=== PATIENT | male | born 1960 | race Caucasian/White ===

== ENCOUNTER 2017-10-25 10:39 | Emergency (ER) | payer OTHER ==
[2017-10-25] MEDS ORDERED: BABY ASPIRIN 81 MG CHEW PO ONE (10:47)
[2017-10-25] MEDS ORDERED: Nitrostat 0.4 MG (ED) SL ONE ×2 (10:47→11:02)
[2017-10-25] MEDS ORDERED: Sodium Chloride 0.9% 1000 ML 1,000 ML IV SCH (11:00)
[2017-10-25] MEDS ORDERED: BABY ASPIRIN 81 MG CHEW ONE (11:02)
[2017-10-25] MEDS ORDERED: Sodium Chloride 0.9% 1000 ML 1,000 ML ONE (11:03)
--- NOTE | 2017-10-25 11:05 | ERPHSYRPT ---
- History of Present Illness Time Seen by Provider: 10/25/17 10:50 Historian: patient Physician History: PATIENT HISTORY OF HYPERTENSION, CORONARY ARTERY DISEASE 2014 WITH 2 STENT INSERTIONS, PATIENT STATES CHEST PAIN WHICH HE DESCRIBES PAIN PRESSURE DISCOMFORT RADIATES TO LEFT SHOULDER BLADE AND DOWN HIS LEFT ARM. HE RATES HIS PAIN SCALE 3/10, DENIES ASSOCIATE DIAPHORESIS AND PALPITATIONS. Timing/Duration: today Activities at Onset: none Quality: pressure, sharpness Location: substernal Chest Pain Radiation: arm, back Severity of Pain-Max: moderate Severity of Pain-Current: moderate Modifying Factors: Improves With: nitroglycerin Associated Symptoms: shortness of breath Prior Chest Pain/Cardiac Workup: cardiac cath, heart attack Nitro Today/Relief: 0.4 mg x 1, provided at home Aspirin Treatment Today: 81 mg x 4, provided by ED Allergies/Adverse Reactions: No Known Drug Allergies Allergy (Verified 10/25/17 10:48) Home Medications: Carvedilol 6.25 mg [Coreg 6.25 MG] 6.25 mg PO BID 10/05/14 [History] Clopidogrel Bisulfate 75 mg [PLAVIX 75 MG Tablet] 75 mg PO DAILY 10/05/14 [History] Lisinopril 20 mg [Zestril 20 MG] 20 mg PO DAILY 10/05/14 [History] Simvastatin 20 mg PO HS 10/05/14 [History] Hx Tetanus, Diphtheria Vaccination/Date Given: (UNSURE) Hx Influenza Vaccination/Date Given: No Hx Pneumococcal Vaccination/Date Given: No - Review of Systems Constitutional: No Fever, No Chills Eyes: No Symptoms Ears, Nose, & Throat: No Symptoms Respiratory: Dyspnea, No Cough Cardiac: Chest Pain, No Edema, No Syncope Abdominal/Gastrointestinal: No Symptoms, No Abdominal Pain, No Nausea, No Vomiting, No Diarrhea Genitourinary Symptoms: No Symptoms, No Dysuria Musculoskeletal: No Symptoms, Joint Redness, No Back Pain, No Neck Pain Skin: No Rash Neurological: No Dizziness, No Focal Weakness, No Sensory Changes Psychological: No Symptoms Endocrine: No Symptoms All Other Systems: Reviewed and Negative - Past Medical History Pertinent Past Medical History: Yes Neurological History: No Pertinent History ENT History: No Pertinent History Cardiac History: Congestive Heart Failure, Coronary Artery Disease, Hypertension , Myocardial Infarction ([place]) Respiratory History: Bronchitis, CHF, COPD, Sleep Apnea Endocrine Medical History: No Pertinent History Musculoskeletal History: Arthritis GI Medical History: No Pertinent History, Hernia History: No Pertinent History Psycho-Social History: No Pertinent History Male Reproductive Disorders: No Pertinent History - Past Surgical History Past Surgical History: Yes Neuro Surgical History: No Pertinent History Cardiac: Cardiac Stent Respiratory: No Pertinent History Gastrointestinal: Hernia Repair Genitourinary: No Pertinent History Musculoskeletal: Orthopedic Surgery Male Surgical History: No Pertinent History - Social History Smoking Status: Former smoker Exposure to second hand smoke: No Drug Use: none Patient Lives Alone: No - Nursing Vital Signs Nursing Vital Signs: Initial Vital Signs Temperature 97.9 F 10/25/17 10:40 Pulse Rate 68 10/25/17 10:40 Respiratory Rate 16 10/25/17 10:40 Blood Pressure 119/80 10/25/17 10:40 Pain Scale Pain Intensity 0 - Physical Exam General Appearance: mild distress Eye Exam: PERRL/EOMI, eyes nml inspection Ears, Nose, Throat Exam: normal ENT inspection, moist mucous membranes Neck Exam: normal inspection, non-tender, supple, full range of motion Respiratory Exam: normal breath sounds, lungs clear, other (NO WHEEZES OR RHONCHI NOTED), No respiratory distress Cardiovascular Exam: regular rate/rhythm, normal heart sounds Gastrointestinal/Abdomen Exam: soft, normal bowel sounds (NONTENDER), No tenderness, No mass Back Exam: normal inspection, No CVA tenderness, No vertebral tenderness Extremity Exam: normal inspection, normal range of motion, other (THERE IS TRACE PRETIBIAL EDEMA) Neurologic Exam: alert, oriented x 3, cooperative, normal mood/affect, sensation nml, No motor deficits Skin Exam: normal color, warm, dry - Course EKG Interpreted by Me: RATE, Sinus Rhythm, NORMAL AXIS (RATE OF [address] SEGMENT DEPRESSION) Ordered Tests: Active Orders 24 hr Category Date Time Status Presto Log Operator STAT Care 10/25/17 10:49 Active EKG-ER Only STAT Care 10/25/17 10:47 Active Oxygen-ED Only NASAL CANNULA 2 lpm Care 10/25/17 10:47 Active CHEST 1 VIEW (PORTABLE) Stat Exams 10/25/17 10:48 Taken CBC W DIFF Stat Lab 10/25/17 10:55 Completed CMP Stat Lab 10/25/17 10:55 Completed D-DIMER QUANTITATION Stat Lab 10/25/17 10:55 Completed NT PRO BNP Stat Lab 10/25/17 10:55 Completed PROTIME WITH INR Stat Lab 10/25/17 10:55 Completed TROPONIN Q3H Lab 10/25/17 10:55 Completed Medication Summary Discontinued Medications Generic Name Dose Route Start Last Admin Trade Name Memo PRN Reason Stop Dose Admin Aspirin 324 mg 10/25/17 10:47 10/25/17 11:20 Baby Aspirin 81 Mg Chew PO 10/25/17 10:48 324 mg STAT ONE Administration Aspirin Confirm 10/25/17 11:02 Baby Aspirin 81 Mg Chew Administered 10/25/17 11:03 Dose 324 mg .ROUTE .STK-MED ONE Sodium Chloride 1,000 mls @ 100 mls/hr 10/25/17 11:00 10/25/17 11:29 Sodium Chloride 0.9% 1000 Ml IV 11/24/17 10:59 100 mls/hr .Q10H DEVIN Administration Sodium Chloride Confirm 10/25/17 11:03 Sodium Chloride 0.9% 1000 Ml Administered 10/25/17 11:04 Dose 1,000 mls @ ud .ROUTE .STK-MED ONE Nitroglycerin 0.4 mg 10/25/17 10:47 10/25/17 11:20 Nitrostat 0.4 Mg (Ed) SL 10/25/17 10:48 0.4 mg STAT ONE Administration Nitroglycerin Confirm 10/25/17 11:02 Nitrostat 0.4 Mg (Ed) Administered 10/25/17 11:03 Dose 0.4 mg SL .STK-MED ONE Lab/Rad Data: Laboratory Result Diagrams 10/25/17 10:55 10/25/17 10:55 Laboratory Results 10/25/17 10/25/17 10/25/17 Range/Units 10:55 10:55 10:55 WBC 7.7 (4.0-10.5) K/mm3 RBC 4.49 (4.1-5.6) M/mm3 Hgb 14.2 (12.5-18.0) gm/dl Hct 39.5 L (42-50) % MCV 88.0 (78-100) fl MCH 31.6 (26-32) pg MCHC 35.9 (32-36) g/dl RDW 13.4 (11.5-14.0) % Plt Count 257 (150-450) K/mm3 MPV 9.3 (6-9.5) fl Gran % 67.1 H (36.0-66.0) % Eos # (Auto) 0.22 (0-0.5) Absolute Lymphs (auto) 1.70 (1.0-4.6) Absolute Monos (auto) 0.59 (0.0-1.3) Lymphocytes % 22.0 L (24.0-44.0) % Monocytes % 7.6 (0.0-12.0) % Eosinophils % 2.8 (0.00-5.0) % Basophils % 0.5 (0.0-0.4) % Absolute Granulocytes 5.18 (1.4-6.9) Basophils # 0.04 (0-0.4) PT 12.6 (8.83-12.87) SECONDS INR 1.08 (0.8-3.0) D-Dimer < 215 L (215-500) ng/mL Sodium (137-145) mmol/L Potassium (3.5-5.1) mmol/L Chloride (98-107) mmol/L Carbon Dioxide (22-30) mmol/L Anion Gap (5-15) MEQ/L BUN (9-20) mg/dL Creatinine (0.66-1.25) mg/dL Estimated GFR ML/MIN Glucose (74-106) mg/dL Calcium (8.4-10.2) mg/dL Total Bilirubin (0.2-1.3) mg/dL AST (17-59) U/L ALT (0-50) U/L Alkaline Phosphatase (38-126) U/L Troponin I < 0.012 (0.000-0.034) ng/mL NT-Pro-B Natriuret Pep (0-900) pg/mL Serum Total Protein (6.3-8.2) g/dL Albumin (3.5-5.0) g/dL 10/25/17 Range/Units 10:55 WBC (4.0-10.5) K/mm3 RBC (4.1-5.6) M/mm3 Hgb (12.5-18.0) gm/dl Hct (42-50) % MCV (78-100) fl MCH (26-32) pg MCHC (32-36) g/dl RDW (11.5-14.0) % Plt Count (150-450) K/mm3 MPV (6-9.5) fl Gran % (36.0-66.0) % Eos # (Auto) (0-0.5) Absolute Lymphs (auto) (1.0-4.6) Absolute Monos (auto) (0.0-1.3) Lymphocytes % (24.0-44.0) % Monocytes % (0.0-12.0) % Eosinophils % (0.00-5.0) % Basophils % (0.0-0.4) % Absolute Granulocytes (1.4-6.9) Basophils # (0-0.4) PT (8.83-12.87) SECONDS INR (0.8-3.0) D-Dimer (215-500) ng/mL Sodium 141 (137-145) mmol/L Potassium 4.0 (3.5-5.1) mmol/L Chloride 108 H (98-107) mmol/L Carbon Dioxide 24 (22-30) mmol/L Anion Gap 13.1 (5-15) MEQ/L BUN 13 (9-20) mg/dL Creatinine 0.75 (0.66-1.25) mg/dL Estimated GFR > 60.0 ML/MIN Glucose 105 (74-106) mg/dL Calcium 8.7 (8.4-10.2) mg/dL Total Bilirubin 0.60 (0.2-1.3) mg/dL AST 12 L (17-59) U/L ALT 15 (0-50) U/L Alkaline Phosphatase 50 (38-126) U/L Troponin I (0.000-0.034) ng/mL NT-Pro-B Natriuret Pep 40.0 (0-900) pg/mL Serum Total Protein 6.5 (6.3-8.2) g/dL Albumin 4.2 (3.5-5.0) g/dL - Progress Progress: improved Progress Note: 10/25/17 11:07 PATIENT ADMINISTERED NORMAL SALINE AT 100 Ml/HOUR, BABY ASPIRIN 4 ORALLY AND SUBLINGUAL NITRO 0.4 MG EVERY 5 MINUTES 3 DOSES. pATIENT USES [facility] [employer] FAR MORPHINE AND FENTANYL. PATIENT IS PAIN FREE AFTER NITRO 0.4MG SL X 3 NITROPASTE 1/2" APPLIED TO CHEST WALL 10/25/17 12:[address].: Other (DISCUSSED WITH DR MCNEAL AT 1220 ACCEPTS TRANSFER VIA [facility]) - Departure Time of Disposition: 13:05 Departure Disposition: Transfer Clinical Impression: ACUTE CHEST PAIN Condition: Stable Critical Care Time: No Referrals: AGUEDA STILL MD [Primary Care Provider] -
[2017-10-25 11:14] LABS: BASOPHIL % 0.5 % (0.0-0.4); Basophil (Absolute #) 0.04 (0-0.4); Eosinophil % 2.8 % (0.00-5.0); Eosinophil (Absolute #) 0.22 (0-0.5); Granulocyte Absolute (ANC) 5.18 (1.4-6.9); Granulocytes % 67.1 % (36.0-66.0); Hematocrit 39.5 % (42-50); Hemoglobin 14.2 gm/dl (12.5-18.0); Mean Corpuscular Hemoglobin 31.6 pg (26-32); Mean Corpuscular Hgb Concent. 35.9 g/dl (32-36); Mean Platelet Volume 9.3 fl (6-9.5); Monocyte (Absolute #) 0.59 (0.0-1.3); Monocytes % 7.6 % (0.0-12.0); Platelet Count 257 K/mm3 (150-450); Red Blood Count 4.49 M/mm3 (4.1-5.6); Red Cell Distribution Width 13.4 % (11.5-14.0); White Blood Count 7.7 K/mm3 (4.0-10.5)
[2017-10-25 11:25] LABS: INR 1.08 (0.8-3.0)
[2017-10-25 11:36] LABS: ALBUMIN 4.2 g/dL (3.5-5.0); ALKALINE PHOSPHATASE 50 U/L (38-126); ANION GAP 13.1 MEQ/L (5-15); BLOOD UREA NITROGEN 13 mg/dL (9-20); CHLORIDE 108 mmol/L (98-107); Calcium 8.7 mg/dL (8.4-10.2); Carbon Dioxide 24 mmol/L (22-30); Creatinine 1 0.75 mg/dL (0.66-1.25); D-DIMER QUANTITATION < 215 ng/mL (215-500); Glucose 105 mg/dL (74-106); SGOT/AST 12 U/L (17-59); SGPT/ALT 15 U/L (0-50); SODIUM 141 mmol/L (137-145); Total Protein 6.5 g/dL (6.3-8.2)
[2017-10-25 13:06] VITALS: BP 98/68; PULSE 67; O2SAT 99
--- NOTE | 2017-10-25 21:04 | XRAY ---
Indication: Short of breath. Comparison: April 17, 2015. Portable chest again demonstrates normal heart and lungs with incidental subcarinal calcified nodes. Bony thorax intact again with partial right coracoclavicular ligament calcification. No new/acute findings.
== END 2017-10-25 13:30 | disposition short-term general hospital (02) ==
LOC: ED 10:39
DX: R07.89 Other chest pain (principal); I50.9 Heart failure, unspecified; I25.10 Atherosclerotic heart disease of native coronary artery without angina pectoris; I10 Essential (primary) hypertension; I25.2 Old myocardial infarction; M19.90 Unspecified osteoarthritis, unspecified site; J44.9 Chronic obstructive pulmonary disease, unspecified; G47.30 Sleep apnea, unspecified
CPT/HCPCS: 36415; 71045; 80053; 83880; 84484; 85025; 85379; 85610; 93005; 93041; 96360; 99285; A9270-GY

== ENCOUNTER 2021-07-17 10:05 | Day surgery (SDC) | payer OTHER ==
[2021-07-17] MEDS ORDERED: Xylocaine 1% Vial 30 ML PF IJ ONE (10:06)
[2021-07-17] MEDS ORDERED: BUPIVACAINE 0.5% VIAL IJ ONE (10:06)
[2021-07-17] MEDS ORDERED: DIPRIVAN 200 MG/20 ML IV ONE (12:30)
[2021-07-17] MEDS ORDERED: Lactated Ringers 1,000 ML IV ONE ×2 (12:31→12:33)
--- NOTE | 2021-07-17 13:37 | XRAY ---
Indication: Right lumbar sympathetic nerve block. Intraoperative fluoroscopy provided for 43 seconds. 4 digital spot image submitted for interpretation demonstrates right posterior needle tip projecting just anterior to mid lumbar segment, presumed L3. Small amount of contrast injected for needle tip placement. Correlate with intraoperative findings/report.
--- NOTE | 2021-07-17 14:23 | XRAY ---
43 seconds fluoroscopy time in surgery for right lumbar sympathetic nerve block.
== END 2021-07-17 13:00 | disposition home or self-care (01) ==
LOC: SDC-PAIN 10:05
PROVIDERS: ATTEND Psychiatry & Neurology Pain Medicine
DX: G90.529 Complex regional pain syndrome I of unspecified lower limb (principal); I10 Essential (primary) hypertension; Z79.899 Other long term (current) drug therapy
CPT/HCPCS: 64520; 72100; 77002; J2001; J2704; Q9966

== ENCOUNTER 2021-08-21 12:02 | Day surgery (SDC) | payer OTHER ==
[2021-08-21] MEDS ORDERED: Sensorcaine 0.25% 10 ML IJ ONE (12:03)
[2021-08-21] MEDS ORDERED: XYLOCAINE-MPF 1% 5ML SDV IJ ONE (12:03)
[2021-08-21] MEDS ORDERED: Zofran 4 MG/2 ML VIAL ONE (12:25)
[2021-08-21] MEDS ORDERED: DIPRIVAN 200 MG/20 ML IV ONE (13:57)
[2021-08-21] MEDS ORDERED: Lactated Ringers 1,000 ML IV ONE (14:35)
--- NOTE | 2021-08-21 15:10 | XRAY ---
Indication: Right lumbar sympathetic nerve block. Intraoperative fluoroscopy provided for 1 minute 8 seconds. 6 digital spot images submitted for interpretation demonstrates right posterior needle tip projecting just anterior to L2. Small amount of contrast was injected for needle tip placement. Correlate with intraoperative findings/report.
--- NOTE | 2021-08-21 16:46 | XRAY ---
1 minute 8 seconds of fluoroscopy was used in surgery for a right lumbar sympathetic nerve block.
== END 2021-08-21 14:25 | disposition home or self-care (01) ==
LOC: SDC-PAIN 12:02
PROVIDERS: ATTEND Psychiatry & Neurology Pain Medicine
DX: G90.529 Complex regional pain syndrome I of unspecified lower limb (principal); I10 Essential (primary) hypertension; Z79.899 Other long term (current) drug therapy
CPT/HCPCS: 01952; 64520; 72100; 77002; 77003; J2405; J2704; Q9966